=== PATIENT | male | born 1965 | race Caucasian/White ===

== ENCOUNTER 2017-01-21 12:09 | Day surgery (SDC) | payer OTHER ==
[~2017-01-21] VITALS: Ht 170.2 cm; Wt 87.0 kg
[~2017-01-21 12:09] MED LIST: 0.9% Sodium Chloride 1,000 ML IV PRN; Sodium Chloride LOK Flush 10 mL Syringe IV PRN; fentaNYL-PF 50 mCg/mL 2 mL Inj IVPUSH PRN
[2017-01-21 12:28] VITALS: BP 141/87; PULSE 80; RESP 16; O2SAT 96
[2017-01-21 13:56] VITALS: BP 129/75; PULSE 72; RESP 14; O2SAT 96
--- NOTE | 2017-01-21 13:56 | PCM.ENDCOL ---
Colonoscopy Date of Service: Jan 21, 2017 Physician Tu Lopez MD Pre Procedure Diagnosis: Bloody stools. The primary care doctor sent the patient for colonoscopy and Dr. Villalba reviewed the case and was cleared for a colonoscopy. Patient wanted to proceed with the colonoscopy. I gave him the option of holding off on the colonoscopy [id number] which is 10 years from his last colonoscopy. Post Procedure Dx & Findings: Hemorrhoids diverticula Procedure Colonoscopy Prep adequate Withdrawal 9 minutes PROCEDURE IN DETAIL: After unremarkable rectal examination with this videocolonoscope was inserted patient's anal canal and was answered the cecum. Landmarks identified including the ileocecal valve and appendiceal orifice. Scope was withdrawn systematically. The mucosa of the cecum, ascending, transverse, descending, sigmoid, rectal mucosa lined with whitish, pink, smooth, glistening, normal-appearing mucosa, normal fine branching, underlying vascularity, normal haustra. The patient tolerated procedure and was transported to observation area. In the sigmoid colon there are several small diverticuli. In the rectum retroflexion was done which showed hemorrhoids. Anal canal was inspected carefully on the way out and hemorrhoids noted. Impression Hemorrhoids Diverticuli Recommendation Repeat colonoscopy 10 years if there is no family history of colon cancer polyp. Diverticular diet Presedation Assessment Risks and Benefits Informed consent was obtained from the patient after all risks and benefits including but not limited to drug reaction, infection, pain, bleeding, perforation, as well as alternatives were discussed. Patient monitoring Continuous pulse oximetry, cardiac monitoring, blood pressure monitoring, IV access, and oxygen at 2L per nasal cannula. Periprocedural Fentanyl: Fentanyl 100mcg Incrementally Midazolam: Midazolam 4mg Incrementally Complications There were no periprocedural complications identified. Post Procedure Plan Post Procedure Recommendations 1. Restrict activities today. 2. Resume normal activities in the morning. 3. Resume medications. 4. Patient informed of normal post procedure side effects as bloating, drowsiness, blood streaking in the stool. 5. average risk CRCS. If colon polyps come back as: -Hyperplastic- can repeat colonoscopy in 10 years -Tubular adenoma- repeat colonoscopy in 5 years -Tubulovillous/villous adenoma- repeat colonoscopy in 3 years -If any dysplasia- return to clinic as soon as possible 6. Please don't hesitate to call me with any questions. Tu Lopez MD Jan 21, 2017 13:56
[2017-01-21 14:11] VITALS: BP 113/73; PULSE 69; RESP 14; O2SAT 97
[2017-01-21 14:12] VITALS: BP 138/86; PULSE 74; RESP 14; O2SAT 98
== END 2017-01-21 23:59 | disposition home or self-care (01) ==
LOC: END 12:09
PROVIDERS: ATTEND Internal Medicine
DX: K64.9 Unspecified hemorrhoids (principal); K57.30 Diverticulosis of large intestine without perforation or abscess without bleeding; K92.1 Melena
CPT/HCPCS: 45378; 99153; G0500; J2250; J3010; J7030